=== PATIENT | female | born 1970 | race Caucasian/White ===

== ENCOUNTER → 2023-07-08 15:24 | Outpatient (REF) | payer OTHER, SELFPAY | LOC: HWWDC 15:24 | PROVIDERS: ATTENDING PHYSICIAN Radiology Radiation Oncology; FAMILY PHYSICIAN Family Medicine | DX: Z12.31 Encounter for screening mammogram for malignant neoplasm of breast (principal) | CPT/HCPCS: 77063; 77067 ==

== ENCOUNTER → 2023-07-23 09:08 | Outpatient (REF) | payer OTHER, SELFPAY | LOC: RCS 09:08 | PROVIDERS: ATTENDING PHYSICIAN Internal Medicine; FAMILY PHYSICIAN Family Medicine | DX: Q24.8 Other specified congenital malformations of heart (principal); Z92.3 Personal history of irradiation; C50.912 Malignant neoplasm of unspecified site of left female breast; R94.31 Abnormal electrocardiogram [ECG] [EKG]; R60.9 Edema, unspecified | CPT/HCPCS: 93017; 93350 ==

== ENCOUNTER → 2023-08-11 15:46 | Outpatient (REF) | payer OTHER, SELFPAY | LOC: DHCBC HW 15:46 | PROVIDERS: ATTENDING PHYSICIAN Internal Medicine; FAMILY PHYSICIAN Family Medicine | DX: Q24.8 Other specified congenital malformations of heart (principal); Z92.3 Personal history of irradiation; C50.912 Malignant neoplasm of unspecified site of left female breast; R94.31 Abnormal electrocardiogram [ECG] [EKG]; R60.9 Edema, unspecified | CPT/HCPCS: 93306 ==

== ENCOUNTER → 2023-11-23 11:32 | Outpatient (REF) | payer OTHER, SELFPAY | LOC: HWRAD 11:32 | PROVIDERS: ATTENDING PHYSICIAN Nurse Practitioner Adult Health; FAMILY PHYSICIAN Family Medicine | DX: C50.412 Malignant neoplasm of upper-outer quadrant of left female breast (principal); Z79.811 Long term (current) use of aromatase inhibitors; Q44.7 Other congenital malformations of liver; E55.9 Vitamin D deficiency, unspecified | CPT/HCPCS: 77080 ==

== ENCOUNTER → 2024-07-12 15:25 | Outpatient (REF) | payer OTHER, SELFPAY | LOC: HWWDC 15:25 | PROVIDERS: ATTENDING PHYSICIAN Internal Medicine Hematology & Oncology; FAMILY PHYSICIAN Family Medicine | DX: Z12.31 Encounter for screening mammogram for malignant neoplasm of breast (principal) | CPT/HCPCS: 77063; 77067 ==

== ENCOUNTER → 2024-10-03 08:49 | Outpatient (REF) | payer OTHER, SELFPAY | LOC: PAVMRI 08:49 | PROVIDERS: ATTENDING PHYSICIAN Internal Medicine; FAMILY PHYSICIAN Family Medicine | DX: Q24.8 Other specified congenital malformations of heart (principal); Z92.3 Personal history of irradiation; C50.912 Malignant neoplasm of unspecified site of left female breast | CPT/HCPCS: 75561; 75565; A9585 ==

== ENCOUNTER 2025-01-27 14:14 | Emergency (ER) | payer OTHER, SELFPAY ==
[2025-01-27 14:23] VITALS: BP 110/60
[2025-01-27 14:31] VITALS: BMI 28.8
[2025-01-27 14:58] LABS: Hematocrit 38.0 % (37.0-47.0); Hemoglobin 13.1 g/dL (12.0-16.0); Mean Corp Hgb Conc. 34.5 g/dL (33.0-37.0); Mean Corpuscular Volume 84.1 fL (81.0-99.0); Nucleated Red Blood Cells % 0 %; Red Cell Dist. Width 13.0 % (11.5-14.5)
--- NOTE | 2025-01-27 14:58 | ED.GENMED ---
History of Present Illness
General
Chief Complaint: Fainting/Passed Out
Source: patient and spouse
Exam Limitations: none
Time Seen by Provider: 01/27/25 14:57
History of Present Illness
History of Present Illness:
54yoF with a history of a pericardial cyst (followed by Dr. Lewis, last echo in July 2023 showed EF of 55-60%) and remote history of breast cancer in remission presenting via EMS with her for evaluation after a syncopal episode. Patient was
at a restaurant this afternoon around 1:30 PM. This was going to be her first meal of the day. When the food arrived, patient felt uncomfortable and lightheaded. She was repositioning herself when she lost consciousness. was able to
catch her. She was unconscious for about 5 to 10 seconds before coming to. She regained consciousness a very brief amount of time before losing consciousness a second time which again lasted around 5 to 10 seconds. did report some
convulsions. No associated tongue biting, incontinence, or postictal period. There was a hide trimmer to having to be in the restaurant who checked her pulse which was reportedly in the 40s. Patient is now feeling improved after receiving IV fluids
prehospital. Her only current complaint is a mild headache which she states is not unusual for her. She denies any chest pain, shortness of breath, palpitations. Of note, patient reports a scratchy throat starting yesterday. No fevers.
Phy Exam
General Physical Exam
General Presentation: well appearing and no apparent distress
General Skin: warm and dry
General Habitus: normal
General Mental: alert
ENT Exam
ENT Exam: normocephalic
Cardiovascular Exam
Cardiovascular Exam: regular rate/rhythm, no edema, no murmur and normal peripheral pulses (2+ DP pulses bilaterally)
Pulmonary Exam
Pulmonary Exam: lungs clear, no respiratory distress, no rales, no crackles, no rhonchi and no wheezing
Neurological Exam
Neurological Exam: alert
Yu Coma Scale
Eye Opening: Spontaneous
Verbal Response: Oriented
Motor Response: Obeys Commands
GCS Total Score: 15
Skin Exam
Skin Exam: normal color and warm/dry
Psychiatric Exam
Psychiatric Exam: normal mood/affect
Course
Orders/Labs/Results
Orders:
Orders
01/27/25 14:22
Electrocardiogram (*1) Urgent
Reason for Study: Chest Pain
Cardiac Monitoring- Treatment ONCE
EKG- Treatment ONCE
01/27/25 14:44
Complete Blood Count/With Diff Urgent
01/27/25 15:10
Cardiac Monitoring- Treatment ONCE
0.9% Sodium Chloride 500 ml [Nss] 500 ml IV BOLUS
01/27/25 16:06
Comprehensive Metabolic Panel Urgent
Troponin I Urgent
01/27/25 16:08
COVID-19 Antigen Urgent
Source: Nasal Swab
Abnormal Lab Results
01/27/25 01/27/25
14:44 16:06
MPV 10.6 H fL
(7.4-10.4)
Absolute Lymphs (auto) 0.4 L 10^3/uL
(1.2-3.4)
Neutrophils % 84.6 H %
(42.2-75.2)
Lymphocytes % 5.8 L %
(20.5-51.1)
Glucose 102 H mg/dl
(70-99)
01/27/25 14:44
01/27/25 16:06
Vital Signs
Initial and Last Documented VS:
Initial Vital Signs
Temp Pulse Resp BP Pulse Ox
99 F 82 20 110/60 98
01/27/25 14:23 01/27/25 14:23 01/27/25 14:23 01/27/25 14:23 01/27/25 14:23
Last Documented Vital Signs
Temp Pulse Resp BP Pulse Ox
99 F 102 13 124/67 98
01/27/25 14:23 01/27/25 17:00 01/27/25 17:00 01/27/25 17:00 01/27/25 17:03
MDM/Problems Addressed
Differential Diagnosis Includes:
54yoF here after 2 syncopal episodes within a 1 minute time span while sitting at a restaurant. Preceded by lightheadedness. No associated incontinence, tongue biting, postictal period. Only current complaint is a headache. No CP/SOB. VSS. She is
well appearing in no distress and exam is reassuring. Differential diagnosis includes but is not limited to: vasovagal syncope, dehydration, orthostasis, hypoglycemia, less likely but consider cardiogenic syncope, doubt seizure given lack of
postictal period
Initial ED plan: Check cardiac labs, COVID swab, and EKG. IV fluid bolus.
*Pulse Oximetry
SaO2: 98
Oxygen Mode of Delivery: Room air
Patient hypoxic: no (98%)
*EKG
Interpreted by ED Provider?: Yes
EKG Intrepretation Date: 01/27/25
Heart Rate: 81
Rate: normal
Rhythm: sinus
[place]: normal axis
Interval: normal interval
QRS Pattern: normal QRS
Ischemia: no ischemia
*Critical Care Note
Total Time (30-74mins, 75-104mins- exclusive of procedures): Not Applicable
Update Note
Update Note:
Labs overall unremarkable including normal hemoglobin and glucose. EKG shows normal sinus rhythm with normal intervals. No ectopy or ischemic changes noted. Troponin within normal limits. Patient monitored for several hours and she is feeling
well on reassessment. Patient able to ambulate to the restroom independently without any recurrent dizziness. Offered delta troponin/EKG but patient and feel comfortable with discharge. Advised close follow-up with PCP and ED return
precautions reviewed. Patient discharged stable condition.
ED Attending Note
-
Portions of this chart may have been created with voice recognition software.� Occasional wrong word or��sound alike� substitutions may have occurred due to the inherent limitations of voice recognition software.
Discharge Plan
Departure
Patient Disposition: Home (Routine Discharge)
Date of Disposition: 01/27/25
Time of Disposition: 17:18
Patient with high blood pressure during this ER visit?: No
Discharge Problem:
Syncope
Instructions: Syncope (Fainting) (DC)
Referrals:
Dandy Hung MD [Family Provider, [facility]]
Activity Restrictions/Additional Instructions:
Drink plenty of fluids and eat breakfast every morning.
Please follow-up with your family doctor next week. Return to the ER with any new or worsening symptoms including chest pain or any recurrent loss of consciousness.
Interventions
Interventions:
*Risk Screen - Suicide Last Done: 01/27/25 14:23
*General Assessment Last Done: 01/27/25 14:23
*Neglect/Abuse Screening Last Done: 01/27/25 14:23
*ED- Fall Risk Assessment Last Done: 01/27/25 14:23
*ED COVID-19 Vaccine History Last Done: 01/27/25 14:23
ED- Cardiac Assessment Last Done: 01/27/25 14:51
ED- Neurological Assessment Last Done: 01/27/25 14:51
Discharge Date and Time
Print Language: SETS[place]
[2025-01-27 15:00] VITALS: BP 100/57
[2025-01-27 15:10] LABS: Platelet Count 171 10^3/uL (130-400)
--- NOTE | 2025-01-27 15:11 | EDRN ---
All blood hemolyzed and needs to be redrawn at this time.
[2025-01-27 15:15] VITALS: BP 106/65
[2025-01-27] MEDS: NSS 500 IV (16:14)
[2025-01-27 16:34] LABS: ALT (SGPT) 18 U/L (0-35); AST (SGOT) 22 U/L (14-36); Albumin 4.8 g/dl (3.5-5.0); Alkaline Phosphatase 106 U/L (38-126); Blood Urea Nitrogen 15 mg/dl (7-17); Calcium 10.0 mg/dl (8.4-10.2); Carbon Dioxide 28 mmol/L (22-30); Chloride 104 mmol/L (98-107); Estimated Creatinine Clearance 82 ml/min; Glucose 102 mg/dl (70-99); Potassium 4.4 mmol/L (3.5-5.1); Sodium 139 mmol/L (135-145); Total Protein 8.0 g/dl (6.3-8.2); eGFR > 60.00
[2025-01-27 16:35] LABS: COVID-19 Antigen Negative (Negative)
--- NOTE | 2025-01-27 16:35 | EDRN ---
Pt ambulated to and from BR w/ this RN from room #41 down [address] to BR across from family, no lightheadedness nor dizziness.
[2025-01-27 16:37] LABS: Troponin I < 0.012 ng/ml
[2025-01-27 17:00] VITALS: BP 124/67
--- NOTE | 2025-01-27 17:07 | EDRN ---
Aaron Martinez said okay for pt to drink and pt given cup of water that was requested.
== END 2025-01-27 17:41 | disposition home or self-care (01) ==
LOC: EMR 14:14
PROVIDERS: Emergency Medicine; Physician Assistant; EMERGENCY PHYSICIAN Emergency Medicine; FAMILY PHYSICIAN Family Medicine
DX: R55 Syncope and collapse (principal); R51.9 Headache, unspecified; Z85.3 Personal history of malignant neoplasm of breast; Z11.52 Encounter for screening for COVID-19
CPT/HCPCS: 99284; 96360; 80053; 84484; 85025; 87811; 93005